=== PATIENT | male | born 1950 | race American Indian/Alaskan Native ===

== ENCOUNTER 2017-01-31 08:48 | Emergency (ER) | payer OTHER, MEDICARE ==
[2017-01-31 08:58] VITALS: BP 144/72
[2017-01-31] MEDS ORDERED: TORADOL IM ONE (09:28)
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
--- NOTE | 2017-01-31 09:59 | XRay Report ---
LUMBOSACRAL SPINE, 3 VIEWS: History: Back pain Findings: The vertebral bodies, disk spaces and posterior elements are intact. No compression deformity or malalignment. Mild degenerative changes at L4-5 and L5-S1 are noted. The SI joints are symmetric and unremarkable. Impression: Mild lumbar spondylosis. No evidence for acute injury to the lumbar spine.
== END 2017-01-31 10:21 | disposition home or self-care (01) ==
LOC: ED 08:48
DX: M54.5 Low back pain (principal); Z87.891 Personal history of nicotine dependence
CPT/HCPCS: 72100; 96372; 99283; J1885

== ENCOUNTER 2017-05-26 13:43 | Emergency (ER) | payer OTHER, MEDICARE ==
[2017-05-26 16:00] VITALS: BP 129/72
[2017-05-26] MEDS ORDERED: TYLENOL PO ONE (16:34)
[2017-05-26] MEDS ORDERED: MOTRIN PO ONE (16:34)
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
== END 2017-05-26 17:09 | disposition home or self-care (01) ==
LOC: ED 13:43
DX: M54.5 Low back pain (principal); M19.90 Unspecified osteoarthritis, unspecified site; Z87.891 Personal history of nicotine dependence; V49.9XXA Car occupant (driver) (passenger) injured in unspecified traffic accident, initial encounter; Y93.89 Activity, other specified; Y99.8 Other external cause status; Y92.410 Unspecified street and highway as the place of occurrence of the external cause
CPT/HCPCS: 93005; 93010; 99282